=== PATIENT | female | born 1995 | race Two or more races ===

== ENCOUNTER 2016-09-11 22:56 | Emergency (ER) | payer SELFPAY ==
[~2016-09-11] VITALS: Ht 162.6 cm; Wt 77.1 kg
--- NOTE | 2016-09-11 23:00 | NUR ---
PT TO ER C/O RIGHT UPPER EXT SWELLING, PAIN, REDNESS. PT DENIES ANY TRAUMA OR INJURY. NO IMMEDIATE SIGNS OF DISTRESS NOTED. PT VITAL SIGNS STABLE. +CMS NOTED TO EXTREMITY. PT TO ER BED, PT WAITING TO BE SEEN BY MD.
[2016-09-11] MEDS ORDERED: VANCOMYCIN 1 GM in IV D5W 250 ML IV ONE (23:30)
[2016-09-11] MEDS ORDERED: IV SET PRIMARY PUMP SET 1 EA INFUS.SET MC ONE (23:31)
[2016-09-11] MEDS ORDERED: VANCOMYCIN 1 GM VIAL ONE (23:31)
[2016-09-11 23:38] LABS: BASOPHILS # (AUTO) 0.1 /CMM (0.0-0.2); BASOPHILS % (AUTO) 0.4 % (0.0-2.0); EOSINOPHILS # (AUTO) 0.1 /CMM (0.0-0.7); EOSINOPHILS % (AUTO) 0.8 % (0.0-6.0); HEMATOCRIT 40 % (33-45); HEMOGLOBIN 13.3 g/dL (11.5-14.8); LYMPHOCYTES % (AUTO) 23.7 % (20.0-44.0); MEAN CORPUSCULAR HEMOGLOBIN 27 PG (26.0-33.0); MEAN CORPUSCULAR HGB CONC 33 g/dl (31.0-36.0); MEAN CORPUSCULAR VOLUME 82 fL (82-100); MONOCYTES # (AUTO) 0.6 /CMM (0.1-1.30); MONOCYTES % (AUTO) 4.6 % (2.0-12.0); NEUTROPHILS # (AUTO) 8.9 /CMM (1.8-8.9); NEUTROPHILS % (AUTO) 70.5 % (43.0-81.0); PLATELET COUNT (AUTO) 341 /CMM (150-450); RDW COEFFICIENT OF VARIATION 13.1 (11.5-15.0); WHITE BLOOD COUNT (AUTO) 12.6 K/uL (4.3-11.0)
[2016-09-11 23:52] LABS: CALCIUM, SERUM 8.2 mg/dL (8.5-10.1); CREATININE 0.7 mg/dL (0.6-1.3); POTASSIUM 3.6 mmol/L (3.5-5.1)
[2016-09-12] MEDS ORDERED: diphenhydrAMINE HCL 50 MG/ML VIAL ONE (00:42)
--- NOTE | 2016-09-12 00:44 | NUR ---
PT C/O REDNESS, ITCHINESS TO CHEST. DR HOUSTON NOTIFIED.
[2016-09-12] MEDS ORDERED: diphenhydrAMINE HCL 50 MG/ML VIAL IV ONE (01:00)
--- NOTE | 2016-09-12 01:36 | NUR ---
REDNESS AND ITCHINESS TO CHEST AND ARMS SUBSIDED.
--- NOTE | 2016-09-12 01:40 | NUR ---
PT OK TO BE DISCHARGED HOME PER DR HOUSTON. IV removed. Catheter intact and site benign. Pressure and 4x4 applied to site. No bleeding noted.Patient discharged to home in stable condition. Written and verbal after care instructions given. Patient verbalizes understanding of instruction.Patient is awake and alert to self, day, and place. PT ambulatory with a steady gait
[2016-09-12 02:18] VITALS: BP 131/74
== END 2016-09-12 01:45 | disposition home or self-care (01) ==
LOC: ER 22:59
DX: T78.40XA Allergy, unspecified, initial encounter (principal); L03.113 Cellulitis of right upper limb
CPT/HCPCS: 36415; 73130; 80048; 85025; 96365; 96375; 99285; A4606; J1200; J3370; Z7610